=== PATIENT | male | born 1950 | race American Indian/Alaskan Native ===

== ENCOUNTER 2018-03-22 09:34 | Emergency (ER) | payer OTHER, MEDICARE ==
[2018-03-22 10:00] VITALS: BP 140/77
[2018-03-22] MEDS ORDERED: NORCO 5/325 PO ONE (10:44)
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
[2018-03-22] MEDS ORDERED: TORADOL IM ONE (11:24)
== END 2018-03-22 12:00 | disposition home or self-care (01) ==
LOC: ED 09:34
DX: R51 Headache (principal); M54.2 Cervicalgia; M54.5 Low back pain; E78.00 Pure hypercholesterolemia, unspecified; R20.2 Paresthesia of skin; V89.2XXA Person injured in unspecified motor-vehicle accident, traffic, initial encounter; Y93.89 Activity, other specified; Y92.488 Other paved roadways as the place of occurrence of the external cause; Y99.8 Other external cause status
CPT/HCPCS: 70450; 72125; 72131; 96372; 99284; J1885